=== PATIENT | male | born 1955 | race Caucasian/White ===

== ENCOUNTER → 2016-11-05 | Outpatient (CLI) | payer BC ==
[~2016-11-05] MED LIST: ALPRAZOLAM0.5 MG PO; DULERA 200 MCG8.8 GM INH; ENSURE ORIGINA237 ML PO; FLONASE 0.05% N16 GM; IPRAT-ALBUT 0.5-3 ML INH; LISINOPRIL20 MG PO; MEDROL DOSEPAK 24 MG PO; PROAIR HFA8.5 GM INH; SPIRIVA18 MCG INH
== END ==
LOC: RT 14:54
DX: R09.02 Hypoxemia (principal); J44.9 Chronic obstructive pulmonary disease, unspecified
CPT/HCPCS: 36600; 82803